=== PATIENT | male | born 1975 | race Caucasian/White ===

== ENCOUNTER 2024-12-21 15:14 | Observation (INO) ==
[2024-12-21] MEDS ORDERED: IOPAMIDOL 100 ML BOTTLE IV ONE (15:15)
[2024-12-21] MEDS: 0.9 % SODIUM CHLORIDE 1,000 ML IV ONE ×2 (15:37→17:43)
[2024-12-21 15:55] LABS: Basophils # (Auto) 0.02 K/mcL (0.00-0.30); Basophils % (Auto) 0.2 % (0.0-2.0); Eosinophils # (Auto) 0.01 K/mcL (0.00-0.70); Eosinophils % (Auto) 0.1 % (0.0-7.0); Hematocrit 50.6 % (40.1-51.0); Hemoglobin 18.1 g/dL (13.7-17.5); Lymphocytes # (Auto) 1.04 K/mcL (1.50-4.80); Lymphocytes % (Auto) 8.7 % (15.5-49.0); Mean Cell Volume 88.6 fL (80.0-100.0); Mean Corpuscular HGB Conc 35.8 g/dL (31.0-36.0); Mean Platelet Volume 9.2 fL (8.8-12.5); Monocytes % (Auto) 8.4 % (1.0-12.0); Neutrophils % (Auto) 82.4 % (38.0-78.0); Platelet Count 157 K/mcL (140-440); RBC 5.71 M/mcL (4.63-6.08); Red Cell Distribution Width 13.2 % (11.5-14.5); WBC 11.9 K/mcL (4.5-11.0)
[2024-12-21 16:16] LABS: proBNP < 36.0 pg/mL (<125.0)
[2024-12-21 16:20] LABS: Alcohol, Blood < 10.1 mg/dL; Alcohol,Blood < 0.010 gm/dL (<0.010)
[2024-12-21 16:27] LABS: ALT/SGPT 35 U/L (<40); AST/SGOT 33 U/L (<40); Albumin 4.8 gm/dL (3.2-5.2); Albumin/Globulin Ratio 1.7 (1.0-2.3); Alkaline Phosphatase 107 U/L (39-117); Bilirubin,Total 1.2 mg/dL (0.1-1.0); Blood Urea Nitrogen 17 mg/dL (6-20); Calcium 9.4 mg/dL (8.6-10.4); Carbon Dioxide 28 mmol/L (22-30); Chloride 98 mmol/L (96-108); Creatine Kinase 177 U/L (24-195); Globulin 2.8 gm/dL (2.2-3.7); Glomerular Filtration Rate 70; Glucose 95 mg/dL (70-105); Potassium 3.6 mmol/L (3.3-5.1); Sodium 141 mmol/L (133-145); Thyroid Stimulating Hormone 0.77 uIU/mL (0.27-5.01)
[2024-12-21 16:56] LABS: Free T4 (Free Thyroxine) 1.08 ng/dL (0.93-1.70); INR 1.1 (0.9-1.1); Prothrombin Time 15.6 sec (11.9-14.5)
[2024-12-21] MEDS: AZITHROMYCIN 500 MG in 0.9 % SODIUM CHLORIDE 250 ML IV ONE (17:42)
[2024-12-21] MEDS: cefTRIAXone 1 GM VIAL IV ONE (17:42)
[2024-12-21 17:56] LABS: Amphetamine Screen,Urine None detected; Barbiturate Screen,Urine None detected; Benzodiazepines Screen,Urine None detected; Cannabinoid Screen,Urine None detected; Cocaine Screen,Urine None detected; Fentanyl, Urine Screen None Detected; Opiate Screen,Urine None detected; Oxycodone, Urine Screen None detected; Phencyclidine Screen,Urine None detected
[2024-12-21 17:57] LABS: Appearance,Urine CLEAR (Clear); Bilirubin,Urine Negative (Negative); Color,Urine YELLOW; Glucose,Urine (UA) Negative (Negative); Ketones,Urine Negative (Negative); Leukocyte Esterase,Urine Negative /uL (Negative); Mucus,Urine FEW /hpf; Nitrate,Urine Negative (Negative); Protein,Urine Negative (Negative); Specific Gravity,Urine 1.018 (1.000-1.035); Urine Blood Negative (Negative); Urine RBC < 1 /hpf (0-3); Urine Squamous Epithelial Cell 0 /hpf (0-4); Urine WBC 1 /hpf (0-4)
[2024-12-21] MEDS: ACETAMINOPHEN 325 MG TABLET PO ONE (18:59)
[2024-12-21] MEDS: LORazepam 2 MG/ML VIAL IV ONE (18:59)
[2024-12-21] MEDS: MECLIZINE 25 MG TABLET PO ONE (19:06)
[2024-12-21] MEDS ORDERED: SENNOSIDES 1 TABLET PO PRN (22:03)
[2024-12-21] MEDS ORDERED: LACTULOSE 20 GM/30 ML ORAL.SOL PO PRN (22:03)
[2024-12-21] MEDS ORDERED: ONDANSETRON 4 MG/2 ML VIAL IV PRN (22:03)
[2024-12-21 23:22] LABS: ALT/SGPT 31 U/L (<40); AST/SGOT 30 U/L (<40); Albumin 4.2 gm/dL (3.2-5.2); Albumin/Globulin Ratio 1.8 (1.0-2.3); Alkaline Phosphatase 88 U/L (39-117); Bilirubin,Direct 0.5 mg/dL (<0.3); Bilirubin,Total 1.2 mg/dL (0.1-1.0); Blood Urea Nitrogen 17 mg/dL (6-20); Calcium 8.6 mg/dL (8.6-10.4); Carbon Dioxide 24 mmol/L (22-30); Chloride 101 mmol/L (96-108); Globulin 2.4 gm/dL (2.2-3.7); Glomerular Filtration Rate 70; Glucose 106 mg/dL (70-105); Lactate Dehydrogenase 161 U/L (135-225); Phosphorous 2.1 mg/dL (2.5-4.5); Potassium 3.4 mmol/L (3.3-5.1); Sodium 139 mmol/L (133-145); Triglycerides 129 mg/dL (<150); Uric Acid 8.8 mg/dL (2.5-8.0)
[2024-12-21] MEDS: 0.9 % SODIUM CHLORIDE 10 ML SYRINGE IV SCH (23:28)
[2024-12-21] MEDS: ACETAMINOPHEN 325 MG TABLET PO PRN (23:28)
[2024-12-22] MEDS: ACETAMINOPHEN 325 MG TABLET PO ONE (00:49)
[2024-12-22 05:48] LABS: Basophils # (Auto) 0.01 K/mcL (0.00-0.30); Basophils % (Auto) 0.1 % (0.0-2.0); Eosinophils # (Auto) 0.03 K/mcL (0.00-0.70); Eosinophils % (Auto) 0.4 % (0.0-7.0); Hematocrit 46.5 % (40.1-51.0); Hemoglobin 16.2 g/dL (13.7-17.5); Lymphocytes # (Auto) 1.37 K/mcL (1.50-4.80); Lymphocytes % (Auto) 20.4 % (15.5-49.0); Mean Cell Volume 90.8 fL (80.0-100.0); Mean Corpuscular HGB Conc 34.8 g/dL (31.0-36.0); Mean Platelet Volume 9.5 fL (8.8-12.5); Monocytes # (Auto) 0.86 K/mcL (0.10-0.90); Monocytes % (Auto) 12.8 % (1.0-12.0); Platelet Count 134 K/mcL (140-440); RBC 5.12 M/mcL (4.63-6.08); Red Cell Distribution Width 13.5 % (11.5-14.5); WBC 6.7 K/mcL (4.5-11.0)
[2024-12-22 06:18] LABS: ALT/SGPT 25 U/L (<40); AST/SGOT 26 U/L (<40); Albumin 4.1 gm/dL (3.2-5.2); Albumin/Globulin Ratio 1.8 (1.0-2.3); Alkaline Phosphatase 87 U/L (39-117); Bilirubin,Direct 0.6 mg/dL (<0.3); Bilirubin,Total 1.4 mg/dL (0.1-1.0); Blood Urea Nitrogen 17 mg/dL (6-20); Calcium 8.6 mg/dL (8.6-10.4); Carbon Dioxide 24 mmol/L (22-30); Chloride 101 mmol/L (96-108); Globulin 2.3 gm/dL (2.2-3.7); Glomerular Filtration Rate 70; Glucose 98 mg/dL (70-105); Lactate Dehydrogenase 193 U/L (135-225); Phosphorous 2.9 mg/dL (2.5-4.5); Potassium 3.3 mmol/L (3.3-5.1); Sodium 138 mmol/L (133-145); Triglycerides 127 mg/dL (<150); Uric Acid 8.7 mg/dL (2.5-8.0)
[2024-12-22] MEDS ORDERED: cefTRIAXone 1 GM VIAL IV SCH (09:00)
[2024-12-22] MEDS ORDERED: AZITHROMYCIN 500 MG in 0.9 % SODIUM CHLORIDE 250 ML IV SCH (10:00)
[2024-12-22] MEDS: DOCUSATE SODIUM 100 MG CAPSULE PO SCH (10:14)
[2024-12-22] MEDS: ENOXAPARIN 40 MG/0.4 ML SYRINGE SQ SCH (10:15)
== END 2024-12-22 11:30 | disposition home or self-care (01) ==
LOC: ICU 15:14 → ED 15:14 → ICU 22:18
PROVIDERS: ADMIT Internal Medicine; ATTEND Internal Medicine